=== PATIENT | male | born 1940 | race Caucasian/White ===

== ENCOUNTER 2019-06-01 | Observation (INO) | payer MEDICARE ==
[2019-06-01] VITALS (17 sets, daily range): BP systolic 125–182; BP diastolic 63–120
--- NOTE | 2019-06-01 11:56 | NUR ---
Pt to room # 6 via W/C for bedside triage
--- NOTE | 2019-06-01 12:00 | NUR ---
PT ALERT AND ORIENTED WITH C/O DIZZINESS WITH STANDING RECENTLY. PT C/O 8 PAIN TO LT FOREARM.
[2019-06-01 12:48] LABS: HEMATOCRIT 45.7 % (39.0-50.0); HEMOGLOBIN 15.4 g/dl (14.0-18.0); IMMATURE GRANULOCYTES 0.3 % (0.0-5.0); MEAN CORPUSCULAR HGB CONC 33.7 g/dL CAL (32.0-36.0); NEUT# 4.23 thou/uL (1.82-7.42); RED BLOOD COUNT 4.97 mill/uL (4.70-6.10); RED CELL DISTRI WIDTH 13.2 % (11.5-15.5)
--- NOTE | 2019-06-01 12:57 | NUR ---
MEDICATED FOR HTN WITH LABETOLOL 10MG IVP. PT TOKERATED WELL, PT AND DTR UPDATED ON POC.
[2019-06-01 12:58] LABS: ANION GAP 16 (6-22 (CALC)); BUN 18 mg/dL (8-23); BUN/CREATININE RATIO 22 (12-20 (CALC)); CARBON DIOXIDE 21 mmol/l (22-30); CHLORIDE 107 mmol/l (95-108); CREATININE 0.8 mg/dL (0.7-1.3); GFR > 60 ML/MIN (>=60 (CALC)); GFR FOR AFR.AMER. > 60 ML/MIN (>=60 (CALC)); POTASSIUM 4.1 mmol/l (3.5-5.1); SODIUM 140 mmol/l (137-146)
--- NOTE | 2019-06-01 13:45 | NUR ---
EDP AT BEDSIDE TO DISCUSS PLAN TO ADMIT, PT AND DAUGHTER AGREEABLE. PT STATES PAIN 2/10 WHEN NOT MOVING.
--- NOTE | 2019-06-01 14:40 | NUR ---
discontinued nicardipene drip for blood pressure of 167/79
--- NOTE | 2019-06-01 14:44 | NUR ---
cleansed left arm with bd ez scrub and applied dressing
--- NOTE | 2019-06-01 15:02 | NUR ---
REPORT GIVEN TO CORINNE IN ICU, WILL TAKE PT TO FLOOR PER ZEB RAWLS
--- NOTE | 2019-06-01 15:12 | NUR ---
Admission Note Report Given to: SBAR PRINTED TO FLOOR Transported by: Wheelchair X Stretcher Transported with: X Nurse Transporter X Patent IV O2 X Plater Helper Location: X ICU MS2
--- NOTE | 2019-06-01 15:20 | NUR ---
PT TRANSFERRED TO ICU5 FROM ER. BEDSIDE REPORT RECEIVED FROM YON ZHANG. PT IN STABLE CONDITION. PT AMBULATED FROM STRETCHER TO BED WITH STAND BY ASSIST. PER ED RN VICENTE CARDENE GTT STOPPED AT 1440. PT HAS DRESSING ON LEFT FOREARM. NO WOUND NOTED ON BUTTOCKS/COCYX. PT ON RA. EDUCATED PATIENT ON ICU STATUS. WILL CONTINUE TO MONITOR.
--- NOTE | 2019-06-01 15:34 | NUR ---
PT BP 182/120. DR HALL NOTIFIED. CARDENE GTT REORDERED. PER DR. HALL MAINTAIN SBP <160. WILL CONTINUE TO MONITOR.
--- NOTE | 2019-06-01 15:41 | NUR ---
BP 165/77. DR. HALL NOTIFIED. PRN HYDRALAZINE AND PO NORVASC ORDERED. PER DR. HALL GIVE PRN AND PO MEDS BEFORE STARTING CARDENE GTT. WILL CONTINUE TO MONITOR.
--- NOTE | 2019-06-01 16:00 | NUR ---
PT RESTING IN BED. TV ON. NO DISTRESS NOTED. DENIES PAIN. WILL CONTINUE TO MONITOR.
--- NOTE | 2019-06-01 18:46 | NUR ---
PT UP IN BED TO EAT DINNER. NO DISTRESS NOTED. DENIES PAIN AT THIS TIME. NO SOB NOTED. PT VOIDED VIA URINAL. AFEBRILE. RA. REPORT TO BE GIVEN TO NIGHT NURSE.
--- NOTE | 2019-06-01 19:30 | NUR ---
BEDRESTING. WATCHING TV. N/C AT THIS TIME OTHER THAN LEFT FOREARM HURTS WHERE HE CUT HIS ARM WHEN HE FELL (AT HOME). DRESSING C/D/I. HL IN PLACE.
--- NOTE | 2019-06-01 20:00 | NUR ---
C/O PAIN OF UPPER BACK (FROM FALL) "JUST CAN'T GET COMFORTABLE" REQUESTED PAIN MEDICATION
--- NOTE | 2019-06-01 21:00 | NUR ---
TYLENOL EFFECTIVE. PAIN FROM "8" TO "5"
--- NOTE | 2019-06-01 22:30 | NUR ---
BEDRESTING WITH EYES CLOSED. NO DISTRESS NOTED
--- NOTE | 2019-06-01 23:59 | NUR ---
SLEEPING PILL GIVEN PER REQUEST. AFTER, TV OFF AND PATIENT QUIET FOR A WHILE. THEN CALLED TO URINATE. STATES UNABLE TO USE URINAL. SO, ASSISTED TO BSC (VIA PIVOT TRANSFER). PT SAT ON COMMODE X 20 MINUTES USNALE TO VOID. ASSISTED BACK TO BED
[2019-06-02] VITALS (26 sets, daily range): BP systolic 97–191; BP diastolic 53–94
--- NOTE | 2019-06-02 00:16 | NUR ---
LAB HERE FOR MIDNIGHT LAB DRAW (BLOODWORK)
--- NOTE | 2019-06-02 02:16 | NUR ---
BEDRESTING. REQUESTED A SECOND PILLOW TO PROP LEFT ARM. REPORTS RESTING EASIER WITH PILLOW
--- NOTE | 2019-06-02 04:18 | NUR ---
b/p elevated at 0227. Apresoline given at 0249 with slight effect. SBP remained greater 160. so, Cardene drip initiated (at 5mg/hr) at 0407.
[2019-06-02 05:49] LABS: CHOLESTEROL HDL RATIO 1.9 (<4.4 (CALC)); MAGNESIUM 1.8 mg/dL (1.6-2.3)
--- NOTE | 2019-06-02 06:29 | NUR ---
TO BSC WITH STANDBY ASSIST. VOIDED 350ML STRAW COLORED URINE-TOLERATED WELL
--- NOTE | 2019-06-02 06:45 | NUR ---
REPORT RECEIVED FROM LEAH OSMAN RN. CARE ASSUMED AT THIS TIME.
--- NOTE | 2019-06-02 06:47 | NUR ---
REPORT TO YON HARRIS. SCOUT. SMILING. N/C AT THIS TIME
--- NOTE | 2019-06-02 07:30 | NUR ---
PT RESTING IN BED AWAKE AT THIS TIME. PT IS ALERT AND ORIENTED X3. SHIFT ASSESSMENT COMPLETED AT THIS TIME. IV PATENT X1. CARDENE GTT DC'D AT THIS TIME. SEE TITRATION CHARTING. PT ASSISTED TO RECLINER AT THIS TIME. WILL CONTINUE TO MONITOR.
[2019-06-02] MEDS ORDERED: TRAMADOL HCL50 MG PO (09:16)
--- NOTE | 2019-06-02 09:20 | NUR ---
DR VALLDAARES AT BEDSIDE AT THIS TIME
[2019-06-02] MEDS ORDERED: MINOCYCLINE100 MG PO (09:35)
--- NOTE | 2019-06-02 09:41 | NUR ---
PT ASSISTED BACK TO BED AT THIS TIME. CALL LIGHT IN REACH. WILL CONTINUE TO MONITOR.
--- NOTE | 2019-06-02 11:00 | NUR ---
PHONED PT DAUGHTER AND REVIEWED DISCHARGE INSTRCUTIONS WITH PT AND DAUGHTER. REMOVED DRESSING TO LEFT FOREARM CLEANSED WOUND. APPLIED BACTROBAN. PLACED TELFA PAD WRAPPED WITH KERLIX AND SECURED WITH TAPE. IV SITE DC'D TO RFA. CATH TIP INTACT. PT TOLERATED WELL.
--- NOTE | 2019-06-02 11:20 | NUR ---
OFFERRED TO LET [facility] STAY ON UNIT FOR LUNCH AND WAIT FOR DAUGHTERS ARRIVAL TO HOSPITAL. MPT REQUESTED TO WAIT IN ER WAITING ROOM.
--- NOTE | 2019-06-02 11:20 | NUR ---
Discharge instructions given. Patient verbalizes understanding of same. Discharged in stable condition via Wheelchair to Home with family. All belongings sent with pt.
== END 2019-06-02 11:20 | disposition home or self-care (01) ==
PROVIDERS: Family Medicine; ADMIT Internal Medicine
DX: I16.0 Hypertensive urgency (principal); G89.11 Acute pain due to trauma; M54.9 Dorsalgia, unspecified; S51.812A Laceration without foreign body of left forearm, initial encounter; L03.114 Cellulitis of left upper limb; B95.62 Methicillin resistant Staphylococcus aureus infection as the cause of diseases classified elsewhere; W18.30XA Fall on same level, unspecified, initial encounter; Y92.009 Unspecified place in unspecified non-institutional (private) residence as the place of occurrence of the external cause

== ENCOUNTER 2019-11-19 16:30 | Emergency (ER) | payer MEDICARE ==
[~2019-11-19] VITALS: Ht 175.3 cm; Wt 75.0 kg
[~2019-11-19 16:30] MED LIST: MINOCYCLINE100 MG PO; TRAMADOL HCL50 MG PO
[2019-11-19 18:39] LABS: HEMATOCRIT 47.7 % (39.0-50.0); HEMOGLOBIN 15.5 g/dl (14.0-18.0); IMMATURE GRANULOCYTES 0.4 % (0.0-5.0); MEAN CELL VOLUME 95.4 fL CALC (80.0-100.0); MEAN CORPUSCULAR HGB CONC 32.5 g/dL CAL (32.0-36.0); NEUT# 5.51 thou/uL (1.82-7.42); RED CELL DISTRI WIDTH 13.3 % (11.5-15.5)
[2019-11-19 18:56] LABS: ALBUMIN 4.1 g/dL (3.2-5.0); ALKALINE PHOSPHATASE 105 u/l (38-126); ANION GAP 12 (6-22 (CALC)); BUN 22 mg/dL (8-23); BUN/CREATININE RATIO 27 (12-20 (CALC)); CHLORIDE 102 mmol/l (95-108); CREATININE 0.8 mg/dL (0.7-1.3); GFR > 60 ML/MIN (>=60 (CALC)); GFR FOR AFR.AMER. > 60 ML/MIN (>=60 (CALC)); LIPASE 87 u/l (23-300); POTASSIUM 4.3 mmol/l (3.5-5.1); SGOT/AST 30 u/l (19-48); SODIUM 137 mmol/l (137-146); TOTAL PROTEIN 6.9 g/dL (6.3-8.2)
[2019-11-19 19:02] LABS: CARBON DIOXIDE 27 mmol/l (22-30)
[2019-11-19 19:36] LABS: URINE BILIRUBIN - DIPSTICK NEGATIVE (NEGATIVE); URINE BLOOD DIPSTICK TRACE-INTACT (NEGATIVE); URINE CLARITY CLEAR; URINE COLOR YELLOW; URINE GLUCOSE - DIPSTICK NEGATIVE (NEGATIVE); URINE KETONE 15 mg/dL (NEGATIVE); URINE LEUK ESTERASE NEGATIVE (Negative); URINE NITRITE - DIPSTICK NEGATIVE (Negative); URINE PROTEIN - DIPSTICK NEGATIVE (NEG-TRACE); URINE SPECIFIC GRAVITY >=1.030; URINE UROBILINOGEN - DIPSTICK 0.2 E.U./dL (0.2)
[2019-11-19] MEDS ORDERED: MIRALAX17 GM/SCOO PO (20:05)
[2019-11-19 20:25] VITALS: BP 176/87
== END 2019-11-19 20:25 | disposition home or self-care (01) ==
LOC: ED 16:30
DX: K59.03 Drug induced constipation (principal); T40.425A Adverse effect of tramadol, initial encounter; I10 Essential (primary) hypertension; G89.29 Other chronic pain; T46.5X6A Underdosing of other antihypertensive drugs, initial encounter; Z91.128 Patient's intentional underdosing of medication regimen for other reason

== ENCOUNTER 2020-03-02 19:32 | Observation (INO) | payer MEDICARE ==
[~2020-03-02] VITALS: Ht 175.3 cm; Wt 75.0 kg
[~2020-03-02 19:32] MED LIST changes: +MIRALAX17 GM/SCOO PO
--- NOTE | 2020-03-02 19:35 | NUR ---
PT ARRIVED VIA EMS C/O ABD PAIN...INTERMITTENT. SEEN HERE BEFORE FOR SAME AND WAS ADMITTED AT THAT TIME FOR HTN. PT STATES THE BP MEDS RAN OUT...NEVER GOT ANOTHER PRESCRITION. PAIN STARTED BACK UP A FEW DAYS AGO AND TOOK SOME LAXATIVES AND MOVED HIS BOWELS YESTERDAY. NOW C/O LUQ PAIN.
[2020-03-02 20:09] LABS: HEMATOCRIT 46.4 % (39.0-50.0); HEMOGLOBIN 15.5 g/dl (14.0-18.0); IMMATURE GRANULOCYTES 0.3 % (0.0-5.0); MEAN CELL VOLUME 96.7 fL CALC (80.0-100.0); MEAN CORPUSCULAR HGB 32.3 pG CALC (26.0-32.0); MEAN CORPUSCULAR HGB CONC 33.4 g/dL CAL (32.0-36.0); NEUT# 5.49 thou/uL (1.82-7.42); RED BLOOD COUNT 4.8 mill/uL (4.70-6.10); RED CELL DISTRI WIDTH 12.9 % (11.5-15.5)
[2020-03-02 20:30] LABS: ALBUMIN 4.4 g/dL (3.2-5.0); ALKALINE PHOSPHATASE 105 u/l (38-126); AMYLASE 62 u/l (30-110); ANION GAP 16 (6-22 (CALC)); BILIRUBIN, TOTAL 1.4 mg/dL (0.0-1.4); BUN 20 mg/dL (8-23); BUN/CREATININE RATIO 25 (12-20 (CALC)); CHLORIDE 103 mmol/l (95-108); CREATININE 0.8 mg/dL (0.7-1.3); GFR > 60 ML/MIN (>=60 (CALC)); GFR FOR AFR.AMER. > 60 ML/MIN (>=60 (CALC)); SGOT/AST 42 u/l (19-48); SODIUM 136 mmol/l (137-146); TOTAL PROTEIN 7.1 g/dL (6.3-8.2)
--- NOTE | 2020-03-02 20:30 | NUR ---
RESTING QUIETLY AWAITING CT.
[2020-03-02 20:34] LABS: CARBON DIOXIDE 21 mmol/l (22-30)
--- NOTE | 2020-03-02 21:35 | NUR ---
RETURNED FROM [facility] PAIN MEDS WERE NOT VERY EFFECTIVE.
--- NOTE | 2020-03-02 22:10 | NUR ---
MEDICATED FOR PAIN.
[2020-03-02 22:14] LABS: URINE BLOOD DIPSTICK TRACE-INTACT (NEGATIVE); URINE COLOR YELLOW; URINE GLUCOSE - DIPSTICK NEGATIVE (NEGATIVE); URINE KETONE >=80 mg/dL (NEGATIVE); URINE LEUK ESTERASE NEGATIVE (NEGATIVE); URINE NITRITE - DIPSTICK NEGATIVE (Negative); URINE PH 5.5 (4.5-8.0); URINE PROTEIN - DIPSTICK NEGATIVE (NEG-TRACE); URINE UROBILINOGEN - DIPSTICK 0.2 E.U./dL (0.2)
[2020-03-02 22:23] LABS: URINE BILIRUBIN - DIPSTICK NEGATIVE (NEGATIVE)
--- NOTE | 2020-03-03 02:00 | NUR ---
PLACED IN HOSPITAL BED. MEDICATED FOR ABD PAIN.
--- NOTE | 2020-03-03 06:00 | NUR ---
ASSISTED TO STAND TO URINATE. PT VERY SHAKY AND UNSTEADY.
[2020-03-03 06:01] LABS: HEMOGLOBIN 14.6 g/dl (14.0-18.0); IMMATURE GRANULOCYTES 0.4 % (0.0-5.0); MEAN CELL VOLUME 97.8 fL CALC (80.0-100.0); MEAN CORPUSCULAR HGB 31.7 pG CALC (26.0-32.0); MEAN CORPUSCULAR HGB CONC 32.4 g/dL CAL (32.0-36.0); NEUT# 5.82 thou/uL (1.82-7.42); RED BLOOD COUNT 4.6 mill/uL (4.70-6.10); RED CELL DISTRI WIDTH 12.9 % (11.5-15.5)
--- NOTE | 2020-03-03 06:19 | NUR ---
HAING SPASMS OF LUQ PAIN
--- NOTE | 2020-03-03 07:06 | NUR ---
REPORT TO YON GARCIA
--- NOTE | 2020-03-03 07:10 | NUR ---
ALL CHARTING IS DONE IN MED SURG CHART
--- NOTE | 2020-03-03 07:30 | NUR ---
PT STATES THAT AT THIS MOMENT HE IS COMFORTABLE AND PAIN IS AT 4/10 IN THE LEFT LQ. AOX4. MEDS WILL BE REVISED AND FLUIDS WILL BE INITIATED AT 125 ML/HR ORDERED
--- NOTE | 2020-03-03 08:30 | NUR ---
PT RECIEVED HIS BREAKFAST TRAY AND CONSUMED 30% OF IT
--- NOTE | 2020-03-03 09:31 | NUR ---
SPEECH THERAPIST IN ROOM WITH PATIENT
[2020-03-03 10:00] VITALS: BP 155/83
--- NOTE | 2020-03-03 10:00 | NUR ---
RESTING QUIETLY,CALL BELLO IN REACH
--- NOTE | 2020-03-03 10:28 | NUR ---
PATIENT RESTING QUIETLY. NO DISTRESS AT THIS TIME. CALL BELLO IN REACH,BED IN LOW POSITION.
--- NOTE | 2020-03-03 11:30 | NUR ---
PT STATES THAT HE IS COMFORTABLE AND DENIES ANY NEEDS AT THIS TIME
[2020-03-03 12:30] VITALS: BP 144/71
--- NOTE | 2020-03-03 12:31 | NUR ---
PT IS EATING HIS LUNCH... CALL LIGHT WITHIN REACH
--- NOTE | 2020-03-03 13:40 | NUR ---
PT TAKEN TO MED SURG VIA STRETCHER, AND IN NO DISTRESS. CARE ASSUMED BY SALVADOR
--- NOTE | 2020-03-03 15:09 | NUR ---
CALLED CONSUELO WHELAN APRN ABOUT PT BP AT THIS TIME. HYDRALAZINE WAS GIVEN AT 1200 AND NORVASC WAS HELD. ORDERED ADMIN TIME FOR NORVASC WAS 1230. IT HAS BEEN AN HOUR SINCE HYDRALAZINE WAS GIVEN AND BP IS AT 126 SYSTOLIC. SPRING UPHOLSTERER ADVISED TO CONTINUE HOLDING BP MED UNTIL BP REACHES SYSTOLIC OF 160.
--- NOTE | 2020-03-03 15:30 | NUR ---
PT TRANSPORTED TO [facility] SURG STABLE AND IN NO DISTRESS. CARE ASSUMED TO SALVADOR
--- NOTE | 2020-03-03 15:50 | NUR ---
PT RECEIVED VIA BED FROM ER WITH STAFF. IV SITE IS FREE FROM REDNESS OR EDMEA.
[2020-03-03 16:00] VITALS: BP 152/82
--- NOTE | 2020-03-03 16:30 | NUR ---
PT WAS GIVEN THE 1ST DOSE OF GASTROGAFFIN WITH CRANBERRY JUICE.
--- NOTE | 2020-03-03 17:00 | NUR ---
2ND DOSE WAS GIVEN WITH CRANBERRY JUUICE.
--- NOTE | 2020-03-03 17:30 | NUR ---
3RD DOSE WAS GIVEN AND INFORMED THE RADIOLOGY.
--- NOTE | 2020-03-03 17:35 | NUR ---
COMPLETED LAST GLASS OD CONTRAST RADIOLOGY INFORMED
[2020-03-03 19:00] VITALS: BP 152/80
--- NOTE | 2020-03-03 20:00 | NUR ---
RECEIVED REPORT FROM DAY NURSE PATIENT RESTING IN BED, WATCHING TV, ALERT ORIENTED, WITH ONGOING IV OF NS @ 125 CC/HR INFUSING WELL ON LEFT HAND, LBM 03/03, ACTIVE BOWEL SOUNDS, C/O PAIN ON LLQ, PAIN AGGRAVATED BY MOVEMENT, NOTED TO BE GUARDING ABDOMEN, BREATHING UNLABORED CALL LIGHT AT REACH.
--- NOTE | 2020-03-04 | NUR ---
PATIENT RESTING IN BED WITH EYS CLOSED, BREATHING EVEN UNLABORED CALL LIGHT AT REACH.
[2020-03-04 00:20] VITALS: BP 179/98
--- NOTE | 2020-03-04 04:00 | NUR ---
PATIENT RESTING WITH EYES CLOSED, BREATHING UNLABORED, CALL LIGHT ATR REACH.
[2020-03-04 04:40] VITALS: BP 162/88
--- NOTE | 2020-03-04 06:44 | NUR ---
PT note Patient is screened for intervention and may benefit from consult for chronic pain if medical agrees
[2020-03-04 07:15] VITALS: BP 158/80
--- NOTE | 2020-03-04 07:15 | NUR ---
PATIENT RESTING IN BED AT THIS TIME BLENDING TANK TENDER HELPER DONE SEE INTERVENTIONS. PATIENT STATES HE HAS NO PAIN CURRENTLY AND DENIES ANY NEEDS. SIDERAILS ARE UP X 2 CALL LIGHT IS WITHIN REACH.
--- NOTE | 2020-03-04 08:43 | NUR ---
Patient screened by ST. Patient may benefit from a swallow evaluation to r/o aspiration due to dx of PNA.
[2020-03-04 09:20] LABS: HEMOGLOBIN 14.9 g/dl (14.0-18.0); IMMATURE GRANULOCYTES 0.5 % (0.0-5.0); MEAN CELL VOLUME 97.9 fL CALC (80.0-100.0); MEAN CORPUSCULAR HGB 31.7 pG CALC (26.0-32.0); MEAN CORPUSCULAR HGB CONC 32.4 g/dL CAL (32.0-36.0); NEUT# 8.82 thou/uL (1.82-7.42); RED BLOOD COUNT 4.7 mill/uL (4.70-6.10); RED CELL DISTRI WIDTH 12.9 % (11.5-15.5)
[2020-03-04 09:53] LABS: ALBUMIN 4.1 g/dL (3.2-5.0); ALKALINE PHOSPHATASE 96 u/l (38-126); ANION GAP 16 (6-22 (CALC)); BILIRUBIN, TOTAL 1.3 mg/dL (0.0-1.4); BUN 11 mg/dL (8-23); BUN/CREATININE RATIO 14 (12-20 (CALC)); CARBON DIOXIDE 20 mmol/l (22-30); CHLORIDE 105 mmol/l (95-108); CREATININE 0.8 mg/dL (0.7-1.3); GFR > 60 ML/MIN (>=60 (CALC)); GFR FOR AFR.AMER. > 60 ML/MIN (>=60 (CALC)); POTASSIUM 3.4 mmol/l (3.5-5.1); SGOT/AST 40 u/l (19-48); SODIUM 137 mmol/l (137-146); TOTAL PROTEIN 6.6 g/dL (6.3-8.2)
--- NOTE | 2020-03-04 12:15 | NUR ---
PATIENT SITTING ON SIDE OF THE BED PATIENT STATED HE HAD SIDE PAIN AND ON HIS LEFT LOWER SIDE BRUISING NOTED AND ASKED IF HE FELL AT HOME HE STATED HE CAN'T REMEMBER. PATIENT MEDICATED FOR PAIN WITH 10MG OF FLEXIRIL PROVIDER NOTIFIED OF BRUISING. SIDERAILS UP CALL LIGHT WITHIN REACH.
[2020-03-04 15:39] VITALS: BP 143/71
--- NOTE | 2020-03-04 15:53 | NUR ---
PATIENT LAYING IN BED AT THIS TIME CALL LIGHT WITHIN REACH [facility] UP DENIES ANY NEEDS AT THIS TIME.
[2020-03-04 19:00] VITALS: BP 153/81
[2020-03-05 01:05] VITALS: BP 186/98
[2020-03-05 04:00] VITALS: BP 160/88
[2020-03-05 06:18] LABS: HEMATOCRIT 40.8 % (39.0-50.0); HEMOGLOBIN 13.3 g/dl (14.0-18.0); MEAN CELL VOLUME 98.6 fL CALC (80.0-100.0); MEAN CORPUSCULAR HGB 32.1 pG CALC (26.0-32.0); MEAN CORPUSCULAR HGB CONC 32.6 g/dL CAL (32.0-36.0); RED BLOOD COUNT 4.14 mill/uL (4.70-6.10)
--- NOTE | 2020-03-05 06:22 | NUR ---
PT MEDICATED FOR BP ORDERS PROVIDE. PT IS SITTING ON THE SIDE OF THE BED TALKING ON THE PHONE WITH HIS DAUGHTER ABOUT GOING TO REHAB. HE IS SAYING THAT HE DOES NOT WANT TO GO TO REHAB AND SHE IS TELLING HIM ON SPEAKER PHONE THAT SHE IS NOT COMING TO GET HIM AND THAT HE NEEDS TO GO TO REHAB. HE ASKED ME HOW SHE GETS TO THIS HOSPITAL, SHE REPLIED "I AM NOT COMING TO GET YOU." HE IS LISTENING TO HER QUIETLY.
[2020-03-05 06:49] LABS: ANION GAP 15 (6-22 (CALC)); BUN 10 mg/dL (8-23); BUN/CREATININE RATIO 13 (12-20 (CALC)); CARBON DIOXIDE 20 mmol/l (22-30); CHLORIDE 107 mmol/l (95-108); CREATININE 0.8 mg/dL (0.7-1.3); GFR > 60 ML/MIN (>=60 (CALC)); GFR FOR AFR.AMER. > 60 ML/MIN (>=60 (CALC)); MAGNESIUM 2.1 mg/dL (1.6-2.3); POTASSIUM 3.7 mmol/l (3.5-5.1); SODIUM 138 mmol/l (137-146)
[2020-03-05 08:00] VITALS: BP 127/57
--- NOTE | 2020-03-05 08:00 | NUR ---
PT WAS PLEASENTLY CONFUSED THROUGHOUT SHIFT. IV TO L HAND INFILTRATED AROUND 2029. NEW IV SIE PLACED IN THE LFA. PT TOLERATED WELL. PT WAS UP AND DOWN ALL NIGHT, INCREASED CONFUSION NOTED. WILL MONITOR
--- NOTE | 2020-03-05 09:00 | NUR ---
PT IS AWAKE, ALERT, ORIENTED X 3, ELDERLY. LUNGS CLEAR, RA. NO COMPLAINT OF SHORTNESS OF BREATH. PT DOES HAVE LEFT SIDED ABDOMINAL DISCOMFORT, TO CT SCAN FOR EVALUATION THIS AM.
--- NOTE | 2020-03-05 13:00 | NUR ---
PT TO CT AND BACK, UPDATED ON NEGATIVE FINDINGS. PT AWARE OF PENDING TRANSFER TO [facility] [address] [facility] THIS AFTERNOON.
[2020-03-05] MEDS ORDERED: SENNA8.6 MG PO (14:59)
[2020-03-05] MEDS ORDERED: MIRALAX17 GM PO (15:00)
[2020-03-05] MEDS ORDERED: LOPRESSOR 550 MG/TAB PO (15:00)
[2020-03-05] MEDS ORDERED: FLEXERIL5 MG PO (15:01)
[2020-03-05] MEDS ORDERED: HYDROCO/APAP1 TA9 PO (15:01)
[2020-03-05] MEDS ORDERED: MIRALAX17 GM/SCOO PO (15:02)
[2020-03-05 15:41] VITALS: BP 148/83
--- NOTE | 2020-03-05 16:33 | NUR ---
PT WAITS FOR [facility] PERSONNEL TO PICK HIM UP. DAUGHTER WILL BRING CLOTHES FOR HIM THERE TOMORROW. GOWNS X 2 PLACED ON PT. IV REMOVED. PT VERBALIZED UNDERSTANDING OF DC INTRUCTIONS, READY FOR PICKUP.
--- NOTE | 2020-03-05 17:25 | NUR ---
PT LEAVES FOR [facility] WITH PERSONNEL WHO ARRIVED WITH WHEELCHAIR. PT LEAVES IN STABLE CONDITION.
== END 2020-03-05 17:25 ==
LOC: ED 19:32 → ED-I 22:27 → ED 23:23 → ED-I 23:24 → MS2 03-03 14:46
PROVIDERS: Emergency Medicine; Nurse Practitioner; ADMIT Internal Medicine; ATTEND Internal Medicine
DX: S30.1XXA Contusion of abdominal wall, initial encounter (principal); J18.9 Pneumonia, unspecified organism; I16.0 Hypertensive urgency; E87.6 Hypokalemia; I10 Essential (primary) hypertension; G89.29 Other chronic pain; M54.2 Cervicalgia; R41.3 Other amnesia; X58.XXXA Exposure to other specified factors, initial encounter; Z60.2 Problems related to living alone; Z79.891 Long term (current) use of opiate analgesic; Z20.822 Contact with and (suspected) exposure to COVID-19
CPT/HCPCS: J1650; Q9967

== ENCOUNTER 2020-11-07 14:23 | Emergency (ER) | payer MEDICARE ==
[~2020-11-07] VITALS: Ht 175.3 cm; Wt 90.0 kg
[~2020-11-07 14:23] MED LIST changes: +FLEXERIL5 MG PO; +HYDROCO/APAP1 TA9 PO; +LOPRESSOR 550 MG/TAB PO; +MIRALAX17 GM PO; +SENNA8.6 MG PO
[2020-11-07] MEDS ORDERED: KEFLEX500 MG PO (16:12)
[2020-11-07 16:46] VITALS: BP 183/79
== END 2020-11-07 16:45 | disposition home or self-care (01) ==
LOC: ED 14:23
DX: S61.214A Laceration without foreign body of right ring finger without damage to nail, initial encounter (principal); I10 Essential (primary) hypertension; W19.XXXA Unspecified fall, initial encounter; Y92.008 Other place in unspecified non-institutional (private) residence as the place of occurrence of the external cause